=== PATIENT | male | born 1955 | race Caucasian/White ===

== ENCOUNTER 2018-11-24 21:28 | Emergency (ER) | payer OTHER ==
[~2018-11-24] VITALS: Ht 167.6 cm; Wt 76.7 kg
[2018-11-24 21:35] VITALS: BP 135/90
--- NOTE | 2018-11-24 21:37 | NUR ---
TO LOBBY A/W BED,XRAY , AMBULATORY
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
[2018-11-24 23:12] VITALS: BP 135/90
--- NOTE | 2018-11-24 23:13 | NUR ---
Patient discharged with v/s stable. Written and verbal after care instructions given and explained. Patient alert, oriented and verbalized understanding of instructions. Ambulatory with steady gait. All questions addressed prior to discharge. ID band removed. Patient advised to follow up with PMD. Rx of NORCO, IBUPROFEN given. Patient educated on sling use and indication of medication including possible reaction and side effects. Opportunity to ask questions provided and answered.
== END 2018-11-24 23:12 | disposition home or self-care (01) ==
LOC: MED 21:28
DX: S43.101A Unspecified dislocation of right acromioclavicular joint, initial encounter (principal); E11.9 Type 2 diabetes mellitus without complications; I10 Essential (primary) hypertension; V87.8XXA Person injured in other specified noncollision transport accidents involving motor vehicle (traffic), initial encounter; Y93.55 Activity, bike riding; Y92.89 Other specified places as the place of occurrence of the external cause; Y99.8 Other external cause status
CPT/HCPCS: 73030; 99283

== ENCOUNTER 2019-01-30 12:40 | Emergency (ER) | payer OTHER ==
[~2019-01-30] VITALS: Ht 152.4 cm; Wt 80.1 kg
[2019-01-30 12:52] VITALS: BP 119/85
[2019-01-30] MEDS ORDERED: ALOG6.252 PO (13:01)
[2019-01-30] MEDS ORDERED: SILD20TA PO (13:02)
[2019-01-30] MEDS ORDERED: METF750T PO (13:03)
[2019-01-30] MEDS ORDERED: LISI-420 PO (13:03)
[2019-01-30] MEDS ORDERED: ATOR40TA PO (13:04)
[2019-01-30] MEDS ORDERED: ASPI-1718 PO (13:05)
--- NOTE | 2019-01-30 13:06 | NUR ---
Patient ambulated to bed 6. RN evaluating patient at bedside.
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
--- NOTE | 2019-01-30 13:32 | NUR ---
Patient discharged with v/s stable. Written and verbal after care instructions given and explained. Patient verbalized understanding. Ambulatory with steady gait. All questions addressed prior to discharge. Advised to follow up with PMD. AVOID MOVEMENTS WITH SHOULDER BEHIND TORSO
[2019-01-30 13:33] VITALS: BP 119/85
== END 2019-01-30 13:23 | disposition home or self-care (01) ==
LOC: MED 12:40
DX: S43.101A Unspecified dislocation of right acromioclavicular joint, initial encounter (principal); E11.9 Type 2 diabetes mellitus without complications; I10 Essential (primary) hypertension; Z98.890 Other specified postprocedural states; Z79.82 Long term (current) use of aspirin; Z79.84 Long term (current) use of oral hypoglycemic drugs; Z79.899 Other long term (current) drug therapy; X58.XXXA Exposure to other specified factors, initial encounter; Y93.89 Activity, other specified; Y92.89 Other specified places as the place of occurrence of the external cause; Y99.8 Other external cause status
CPT/HCPCS: 99282